=== PATIENT | male | born 1945 | race Caucasian/White ===

== ENCOUNTER → 2018-10-27 | Outpatient (REF) | payer MEDICARE, BC ==
[~2018-10-27] MED LIST: ACTOS30 MG PO; ADLT ASA LOW81 MG PO; ALEVE220 MG PO; ASPIRIN325 M1 OR; CHERATUSSIN PO; CIPROFLOXACN250 MG PO; GABAPENTIN300 MG PO; GLYBURID MCR6 MG PO; GLYBURIDE5 M1 PO; GLYBURIDE5 MG OR; LISINOPRIL5 MG PO; LOMOTIL2.5 MG PO; LORTAB 10-325 M1 TAB PO; LYRICA75 MG PO; METFORMIN1000 MG PO; METOPROL TAR50 MG PO; METRONIDAZOL500 MG PO; METRONIDAZOLE500 MG PO; MULTIVITAMIN OR; PERCOCET 5/321 COMBO PO; PLAVIX75 MG PO; PX ASPIRIN325 M1 PO; ROLAID PO; TRAMADOL HCL50 MG PO; ULTRAM50 M1 PO; ZESTRIL5 M1 PO; ZPAK PO
[2018-10-27 08:14] LABS: HEMATOCRIT 35.3 % (39.0-50.0); HEMOGLOBIN 11.2 g/dl (14.0-18.0); IMMATURE GRANULOCYTES 0.9 % (0.0-5.0); MEAN CELL VOLUME 92.7 fL CALC (80.0-100.0); MEAN CORPUSCULAR HGB 29.4 pG CALC (26.0-32.0); MEAN CORPUSCULAR HGB CONC 31.7 g/L CALC (32.0-36.0); NEUT# 4.68 thou/uL (1.82-7.42); RED BLOOD COUNT 3.81 mill/uL (4.70-6.10); RED CELL DISTRI WIDTH 14.3 % (11.5-15.5)
[2018-10-27 08:51] LABS: ALBUMIN 4.5 g/dL (3.2-5.0); BILIRUBIN, TOTAL 0.6 mg/dL (0.0-1.4); CREATININE 1.9 mg/dL (0.7-1.3); POTASSIUM 4.7 mmol/l (3.5-5.1); TOTAL PROTEIN 7.5 g/dL (6.3-8.2)
== END | disposition home or self-care (01) ==
LOC: LAB 07:50
PROVIDERS: ATTEND Internal Medicine Geriatric Medicine
DX: E11.9 Type 2 diabetes mellitus without complications (principal); I10 Essential (primary) hypertension

== ENCOUNTER → 2018-11-15 | Outpatient (REF) | payer MEDICARE, BC ==
[2018-11-15 12:48] LABS: CHOLESTEROL HDL RATIO 4.3 (<4.4 (CALC))
== END | disposition home or self-care (01) ==
LOC: LAB 11:37
PROVIDERS: ATTEND Nurse Practitioner Family
DX: I25.10 Atherosclerotic heart disease of native coronary artery without angina pectoris (principal); Z12.5 Encounter for screening for malignant neoplasm of prostate

== ENCOUNTER 2019-01-02 15:09 | Observation (INO) | payer MEDICARE, BC ==
[~2019-01-02] VITALS: Ht 177.8 cm; Wt 77.0 kg
[2019-01-02 16:35] VITALS: BP 154/77
[2019-01-02 17:34] LABS: IMMATURE GRANULOCYTES 0.8 % (0.0-5.0); MEAN CELL VOLUME 91.4 fL CALC (80.0-100.0); MEAN CORPUSCULAR HGB 29.6 pG CALC (26.0-32.0); MEAN CORPUSCULAR HGB CONC 32.4 g/L CALC (32.0-36.0); NEUT# 5.38 thou/uL (1.82-7.42); RED BLOOD COUNT 4.05 mill/uL (4.70-6.10); RED CELL DISTRI WIDTH 14.1 % (11.5-15.5)
[2019-01-02 17:46] LABS: CREATININE 2.1 mg/dL (0.7-1.3)
[2019-01-02 17:51] LABS: POTASSIUM 5.4 mmol/l (3.5-5.1)
--- NOTE | 2019-01-02 19:00 | NUR ---
RECEIVED REPORT FROM NURSE RODRIGUEZ, PATIENT APPEARS TO BE SLEEPING WITH EYES CLOSED EVEN UNLABORED BREATHING CALL LIGHT AT REACH.
[2019-01-02 19:30] VITALS: BP 136/78
--- NOTE | 2019-01-02 20:50 | NUR ---
PT ARRIVED ON UNIT @ 1615 VIA W/C DIRECT ADMIT, ALERT AND ORIENTED X 2, ORIENTED TO ROOM AND CALL CHOUDHARY, DENIES PAIN/DISCOMFORT AT ARRIVAL TIME, SPOUSE AT BEDSIDE, WILL CONTINUE TO MONITOR.
--- NOTE | 2019-01-02 21:00 | NUR ---
PATIENT ALERT AND ORIENTED SELF AND PLACE, WITH AND ONGOING IVF OF D5 1/2 NS @100CC/HR INFUSING WELL REMAINS ON TELE SR 67, LAST BM 01/02, EVEN UNLABORED BREATHING CALL LIGHT AT REACH.BED ALARM IN PLACE
[2019-01-02 23:43] VITALS: BP 163/95
[2019-01-03 00:39] LABS: URINE BILIRUBIN - DIPSTICK NEGATIVE (NEGATIVE); URINE BLOOD DIPSTICK NEGATIVE (NEGATIVE); URINE COLOR YELLOW; URINE GLUCOSE - DIPSTICK 500 mg/dL (NEGATIVE); URINE KETONE NEGATIVE (NEGATIVE); URINE LEUK ESTERASE NEGATIVE (NEGATIVE); URINE NITRITE - DIPSTICK NEGATIVE (Negative); URINE PROTEIN - DIPSTICK NEGATIVE (NEG-TRACE); URINE UROBILINOGEN - DIPSTICK 0.2 E.U./dL (0.2)
[2019-01-03 00:48] VITALS: BP 132/34; BP 132/64
--- NOTE | 2019-01-03 02:11 | NUR ---
PATIENT APPEARS TO BE SLEEPING WITH EYES CLOSED EVEN UNLABORED BREATHING ON TELE SR 68, NO DISCOMFORTS NOTED AT THIS TIME, CALL LIGHT AT REACH, BED ALARM IN PLACE
--- NOTE | 2019-01-03 04:57 | NUR ---
PATIENT SLEEPING IN BED, EYES CLOSED NO DISCOMFORTS NOTED AT THIS TIME, CALL LIGHT AT REACH.
[2019-01-03 05:06] VITALS: BP 158/93
[2019-01-03 06:06] LABS: HEMATOCRIT 35.3 % (39.0-50.0); HEMOGLOBIN 11.5 g/dl (14.0-18.0); IMMATURE GRANULOCYTES 0.5 % (0.0-5.0); MEAN CELL VOLUME 90.1 fL CALC (80.0-100.0); MEAN CORPUSCULAR HGB 29.3 pG CALC (26.0-32.0); MEAN CORPUSCULAR HGB CONC 32.6 g/L CALC (32.0-36.0); NEUT# 4.96 thou/uL (1.82-7.42); RED BLOOD COUNT 3.92 mill/uL (4.70-6.10); RED CELL DISTRI WIDTH 13.9 % (11.5-15.5)
[2019-01-03 06:23] LABS: BILIRUBIN, TOTAL 0.7 mg/dL (0.0-1.4); CHOLESTEROL HDL RATIO 3.1 (<4.4 (CALC)); CREATININE 1.6 mg/dL (0.7-1.3); POTASSIUM 4.5 mmol/l (3.5-5.1); TOTAL PROTEIN 6.6 g/dL (6.3-8.2)
[2019-01-03 06:32] VITALS: BP 146/84
--- NOTE | 2019-01-03 07:20 | NUR ---
PT REPORT RECIEVED FROM JOSE LAND. PT RESTING. NO S/S OF DISTRESS. CALL LIGHT IN REACH. WILL CONTINUE TO MONITOR.
[2019-01-03 08:29] VITALS: BP 151/87
--- NOTE | 2019-01-03 08:29 | NUR ---
PT ALERT TO SELF/PLACE. RESP EVEN AND UNLABORED. LUNG SOUNDS CLEAR. TELE IN PLACE. BOWEL SOUNDS ACTIVE X4. STRONG RADIAL AND PEDAL PULSES. #22 RFA NS @75. SITE APPEARS HEALTHY. SKIN INTACT. PT DENIES ANY PAIN OR NEEDS. POC DISCUSSED. SAFETY PRECAUTIONS IN PLACE. CALL LIGHT IN REACH. BED ALARM ON. WILL CONTINUE TO MONITOR.
[2019-01-03] MEDS ORDERED: AZELASTINE0.1 % (09:59)
[2019-01-03] MEDS ORDERED: ELIQUIS5 MG PO (10:01)
[2019-01-03] MEDS ORDERED: FLUTICASONE0.05 % (10:02)
[2019-01-03] MEDS ORDERED: LOPRESSOR50 M1 PO (10:03)
[2019-01-03] MEDS ORDERED: SERTRALINE50 MG PO (10:06)
[2019-01-03] MEDS ORDERED: NEURONTIN300 MG PO (10:09)
[2019-01-03 10:54] VITALS: BP 135/72
--- NOTE | 2019-01-03 12:17 | NUR ---
PT SITTING IN RECLINER TALKING WATCHING TELVISION W/ . ANXIOUS TO GO HOME. CALL LIGHT IN REACH. WILL CONTINUE TO MONITOR.
--- NOTE | 2019-01-03 14:47 | NUR ---
DC INSTRUCTIONS DISCUSSED W/ PT AND . BOTH STATE UNDERSTANDING. IV REMOVED. CATHETER INTACT. PT AWAITING VOLUNTEER TO BE TRANSPORTED DOWNSTAIRS.
--- NOTE | 2019-01-03 15:04 | NUR ---
Discharge instructions given. Patient verbalizes understanding of same. Discharged in stable condition via Wheelchair to Home with spouse. All belongings sent with pt.
== END 2019-01-03 14:54 ==
LOC: MS2 15:09
PROVIDERS: ADMIT Internal Medicine Geriatric Medicine; ATTEND Internal Medicine Geriatric Medicine
DX: R29.6 Repeated falls (principal); I10 Essential (primary) hypertension; E11.9 Type 2 diabetes mellitus without complications; E78.5 Hyperlipidemia, unspecified; G89.4 Chronic pain syndrome; Z86.73 Personal history of transient ischemic attack (TIA), and cerebral infarction without residual deficits